=== PATIENT | female | born 1970 ===

== ENCOUNTER 2025-08-06 13:47 | Outpatient (AMB) | payer OTHER, SELFPAY ==
--- OUTSIDE RECORDS SUMMARY | 2025-07-31 23:59 | XMS_ITS | Continuity of Care Document ---
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 Date(s): 07/01/25 - 07/31/25 [facility] [address], [place] [address] Encounter Type: Triage Allergies, Adverse Reactions, Alerts No Known Allergies Immunizations Given and Recorded Vaccine Date Status Refusal Reason influenza virus vaccine, inactivated 07/21/23 Jalil rded influenza virus vaccine, inactivated 08/06/21 Jalil rded influenza virus vaccine, inactivated 07/21/20 Jalil rded influenza virus vaccine, inactivated 07/16/20 Jalil rded influenza virus vaccine, inactivated 09/25/19 Jalil rded influenza virus vaccine, inactivated 09/29/18 Jalil rded influenza virus vaccine, inactivated 07/06/18 Jalil rded influenza virus vaccine, inactivated 1 07/08/17 Re corded influenza virus vaccine, inactivated 06/30/16 Jalil rded influenza virus vaccine, inactivated 07/01/15 Give n influenza virus vaccine, inactivated 06/23/12 Jalil rded SARS-CoV-2 (COVID-19) mRNA-1273 vaccine 10/02/21 R ecorded SARS-CoV-2 (COVID-19) mRNA-1273 vaccine 10/01/20 R ecorded SARS-CoV-2 (COVID-19) mRNA BNT-162b2 vac 10/29/20 Recorded SARS-CoV-2 (COVID-19) mRNA BNT-162b2 vac 09/30/20 Recorded tetanus/diphtheria/pertussis, acel(Tdap) 09/29/18 Recorded tetanus/diphtheria/pertussis, acel(Tdap) 06/13/09 Recorded tetanus/diphtheria/pertussis, acel(Tdap) 08/11/07 Recorded influenza virus vaccine, live 10/01/14 Recorded tetanus-diphtheria toxoids (Td) 2 10/14/05 Given Measles/Mumps/Rubella Virus Vaccine 09/26/99 Recor ded 1Result Comment: [07/08/2017] done at work 2Admin Note: Adm by nurse Medications HydrOXYzine 0 Refills, Maintenance, 07/17/25 10:38:00 AM EDT, Partial fill upon patient request if the prescription is for a schedule II opioid drug. Start Date: 07/17/25 Status: Ordered Medication Dispense Status: Completed Total Allowed Fills: 1 Fills Dispensed: 0 meloxicam 10 mg oral capsule 1 capsule = 10 mg, By Mouth, Daily, 0 Refills, Maintenance, 07/17/25 10:38:00 AM EDT, Partial fill upon patient request if the prescription is for a schedule II opioid drug. Start Date: 07/17/25 Status: Ordered Medication Dispense Status: Completed Total Allowed Fills: 1 Fills Dispensed: 0 Rinvoq 15 mg oral tablet, extended release 1 tablet = 15 mg, By Mouth, Daily, do not chew or break tablets, # 30 tablet, 0 Refills, Maintenance, 01/05/25 12:09:00 PM EDT, ER Tablet, Partial fill upon patient request if the prescription is for a schedule II opioid drug. Start Date: 01/05/25 Status: Ordered Medication Dispense Status: Completed Quantity: 30.0 Unit: tablet Total Allowed Fills: 1 Fills Dispensed: 0 Problem List Condition Confirmation Course Effective Dates Status H ealth Status Informant SHAKIRA (generalized anxiety disorder) Confirmed Active History of urinary incontinence s/p sling procedure Confirmed Active History of diverticulitis Confirmed Active Mixed hyperlipidemia Confirmed Active Morning headache Confirmed Active Leg pain Confirmed Active Health care maintenance Confirmed Active Encounter for screening colonoscopy Confirmed Active Prediabetes Confirmed Active Psoriasis Confirmed Active Rosacea Confirmed Active Severe obesity (BMI 35.0-39.9) with comorbidity Confirmed Active De Anda's cyst Confirmed Active Tubular adenoma of colon 1 Confirmed 10/07/20 Active Venous insufficiency of lower extremity Confirmed Active 1repeat screening colonoscopy in 2027 Social History Social History Type Response Smoking Status Never smoker entered on: 11/16/13 Sexual Orientation Self described orien tation: ; Straight or heterosexual Sex Sex Representation Female (finding) Patient Care team information Care Team Personnel Name: Mehdi GREEN, Ro Sauer Position: [facility] Physician - Primary Care Member Role: PCP Address: [address] [place] [address] Telecom: Care Team Related Persons Name: MAT ZENG Name: DANIELLA SOLIS Name: JOY SOLIS Name: JEFF SCALES Insurance Providers Guarantor name: KEL SOLIS Health Plan Information #: 1 Payer: [facility] PPO Payer Identifier: JORDAN Member Number: [id number] Group Number: [id number] Subscriber Identifier: NA Relationship to Subscriber: self Coverage Type: Other Private Insurance Coverage Verification Date: NA Telecom: NA Address: NA
--- NOTE | 2025-08-06 13:50 | MHC.AMNUTRGE ---
VS Expanded 08/06/25 13:52 08/06/25 13:56 Height 5 ft 3 in 5 ft 3 in Weight 199 lb 1.239 oz 200 lb BMI 35.3 35.4 Intake Visit Reasons: Obesity Allergies latex Allergy (Verified 08/06/25 14:10) Swelling Nutrition Presentation Details: Patient presents for MNT for obesity Pt reports having gained about 17 lb since April of 2025. Patient physical activity has lessened due to knee pain for which she is evaluated by Dr. Patient reports lacking routine and is looking forward to starting meal planning Food frequency Fruits 0-1 per day Vegetables once a day Dairy 1 to twice a day Fish 0 2 once a week Beverages: Water, juices, coffee, tea HDT-Fdflxxp-Do.Jeor Equation Height: 5 ft 3 in Weight: 200 lb Resting Metabolic Rate: 1469.88 Calculated Activity Level: Sedentary Calories Needed to Maintain Weight: 1763.86 Diagnosis Nutrition problem #1: overweight/obesity As related to (etiology) #1: diagnosis and physical inactivity As evidenced by (sign/symptom) #1: high BMI and knowledge deficit of diet Assessment & Plan Assessment & Plan (1) Obesity (BMI 30-39.9): Code(s): E66.9 - Obesity, unspecified Category: Medical Plan: current wt: 91 kg ( August 20 ) est kcal needs as per MSJ: 1700 est protein needs as per 1 g/kg BW: 90 est fluid needs as per 30 ml/kg BW: 2700 Recommended fiber > 12 g /day and gradually increase up to 25-28 g /day or as tolerated Recommended sodium intake: Less than 2300 mg per day unless otherwise specified by DrJonelle Nutrition topics discussed : Reviewed (R), Pt verbalized understanding (V) , not applicable (N/A) R, : Healthy Plate Method Concept: R, : Carbohydrates: food sources of carbohydrates, relationship of carbohydrates to blood glucose, fatty liver GI health. Recommended total amount of carbohydrates per meals and snack. Differences between simple carbohydrates and complex carbohydrates R, : Lean protein foods including vegan , vegetarian sources of protein. Benefits of protein (including but not limited to healing, nutritional value , benefits in weight loss, glucose control R, V, N/A: Fats : Source of fats, benefits of fats. Difference between saturated and unsaturated fats. Saturated fats and its contribution to inflammation R, V, N/A: Fiber: food sources and role of fiber in the diet (including but not limited to its role as a prebiotic, benefits in constipation, role in IBS , role in glucose control and cholesterol level) R, V, N/A: Hydration: role of hydration and prevention of dehydration or over hydration. Foods and water content. R, V, N/A: Vitamins and Minerals in foods and supplements R, V, N/A: Interpreting food labels, including serving size, macronutrients, vitamins, minerals, allergens, ingredient list , % daily value Patient Instructions: Have meal replacement a day Make your evening meal less than 40-60 g of carbohydrate following healthy plate method Coding Level of Care Code Nutr Indiv Intake (94300) Diagnoses Obesity (BMI 30-39.9) E66.9 Time Spent (min) 30
[2025-08-06 13:52] VITALS: BMI 35.3
--- OUTSIDE RECORDS SUMMARY | 2025-08-06 15:24 | XMS_ITS | Data Portability ---
Author Organization [place] [facility] [place] Address [address] [place] [address] Assessment Encounter Date Assessment Date Assessment LastModified by Organization Details LastModified Time 04/08/2025 04/08/2025 Patient is a 54-year-old female with tricompartmental degenerative changes, greatest in the patellofemoral compartment. She had worsening of her symptoms with a corticosteroid injection performed a month ago. Ultrasound demonstrated a De Anda's cyst which were noted on today's visit also. We discussed additional treatment options. She will make an appointment with Dr. Barahona's team to discuss possible hyaluronic acid injection. Activity modification and realistic expectations were emphasized. _ Patient was seen and evaluated by Chucho Detusch PA-C in indirect conjunction with Dr. Barahona. The provider agrees with the history, physical examination, recommended tests/diagnostic imaging, and treatment plan. [email or web address] Not available 04/08/2025 14:46:17 04/17/2025 04/17/2025 54-year-old fema le with bilateral knee pain. History, examination and x-rays are consistent with a moderate to marked degree of osteoarthritis especially at the patellofemoral joint. She has failed to respond to cortisone injections. After discussion regarding treatment options she will be provided a prescription for meloxicam for as needed use for pain control. She also wishes to proceed with planning for viscosupplementation injections. Follow-up with me pending insurance authorization. This patient was seen and evaluated by Tayler Vega MS, PA-C in indirect conjunction with documenting/supervisin g provider Kimo Barahona MD. He agrees with history, physical examination, tests/diagnostic imaging, and treatment plan. This document was generated using voice recognition software. As a result, there may be unintended spelling, grammatical and/or textual errors. [email or web address] Not available 04/17/2025 08:57:05 07/04/2025 07/04/2025 HPI: Patient presents for Synvisc One viscosupplementation injection for the treatment of bilateral knee pain. All questions are answered to the patient's satisfaction. Exam: Knee(s) examined to show no sign of infection. Skin is intact. Score of 2 or more on Kellgren Joey scale. Tenderness to palpation of joint line. Distal checks are intact. Assessment/Plan: Knee pain secondary to osteoarthritis. See the attached procedure note. All questions were answered to the patient's satisfaction. Follow-up with me in 1 month. This patient was seen and evaluated by Tayler Vega MS, PA-C in indirect conjunction with documenting/supervisin g provider Kimo Barahona MD. He agrees with history, physical examination, tests/diagnostic imaging, and treatment plan. Not available 07/04/2025 09:04:21 08/01/2025 08/01/2025 54-year-old fema le with bilateral knee pain. History, examination and x-rays are consistent with advanced osteoarthritis with [id number] articulation. She has failed to respond to a wide range of conservative treatment options and is having progressive pain and disability. She wishes to proceed with planning for total joint arthroplasty. She wishes to have the right 1 done first and the left one soon after. At her request, she will be provided a refill for meloxicam. Follow-up with Dr. Barahona. This patient was seen and evaluated by Tayler Vega MS, PA-C in direct or indirect conjunction with documenting/supervisin g provider Kimo Barahona MD. He was present in the office or available for consultation. He has reviewed and agrees with the history, physical examination, tests/diagnostic imaging, and treatment plan. This document was generated using voice recognition software. As a result, there may be unintended spelling, grammatical and/or textual errors. Not available 08/01/2025 09:19:40 Plan of Treatment Reminders Order Date Submit Date Provider Last Modified By Organization Details Last Modified Time Details Appointments ESTABLISH ED/AONE REFERRAL 2024 09:15A M Kimo Barahona MD Not available Not available Not available Lab None recorded. Referral None recorded. Procedures intra-art icular injection , knee, viscosupp lement (PROC) - Please check insurance for Visco Authoriza tion, insurance preferred med. Choose One: 3 series or 1 series prefers 1 Knee Lateralit y: Bilate ral 2024 025 [email or web address] Not available 06/27/2025 11:16:23 Surgeries None recorded. Imaging XR, knee, 3 view 2024 025 [email or web address] 1 [facility], [address], [place], [address], 04/08/2025 16:46:05 XR, knee, 3 view 2024 025 [email or web address] 1 [facility], [address], [address], [place], [address], 04/08/2025 16:46:05 Medication Orders meloxicam 15 mg tablet 2024 025 [facility] #[id number], [address] [place] [address], [address], 08/01/2025 09:19:48 Synvisc-O ne 48 mg/6 mL intra-art icular syringe [address]/Pharmacy #[id number], [address] [place] [address], [address], 07/04/2025 09:04:40 Synvisc-O ne 48 mg/6 mL intra-art icular syringe [address]/Pharmacy #[id number], [address] [place] [address], [address], 07/04/2025 09:04:40 meloxicam 15 mg tablet 2024 025 [id number], [address] [facility], [place], [address], 04/17/2025 08:57:06 Patient TargetsNo targets recorded. Patient InstructionsNo instructions recorded. Reason for Referral None Reported. Problems Name Problem SNOMED Code Status Onset Date Resolution Date Notes Provider Name and Address Organization Details Recorded Time Primary gonarthrosi s, bilateral 674623760 Active 025 TAYLER VEGA PA-C [address], [place], [address], [place] [facility] 08:57:06 Problem Notes None recorded. Procedures Surgical History Date Name Laterality Status Provider Name and Address Organization Details Recorded Time 07/04/2025 Synvisc-On e Knee Inj w/US completed TAYLER VEGA PA-C [address] [facility] [address], [place], [address], [place] [facility] 07/04/2025 09:03:24 Imaging Results None recorded. Procedure Notes None recorded. Medical Equipment None Reported. Medications Name Sig Start Date Stop Date Status Note LastModified by Organization Details LastModified Time amoxicillin 500 mg capsule TAKE 1 CAPSULE BY MOUTH THREE TIMES A DAY active Not Available Not Available No t Available desonide 0.05 % topical cream APPLY TO EYELIDS TWICE DAILY DIRECTED FOR 5-7 DAYS THEN STOP active Not Available Not Available No t Available prednisone 10 mg tablet TAKE 1 TABLET BY MOUTH EVERY DAY active Not Available Not Available No t Available ibuprofen 800 mg tablet TAKE 1 TABLET BY MOUTH THREE TIMES A DAY active Not Available Not Available No t Available fluconazole 150 mg tablet TAKE 1 TABLET BY MOUTH ONCE AND REPEAT IN 3 DAYS IF SYMPTOMS PERSIST active Not Available Not Available No t Available meloxicam 15 mg tablet Take 1 tablet every day by oral route as needed. 2024 active Not Available Not Available Not Avai lable betamethaso ne, augmented 0.05 % topical cream PLEASE SEE ATTACHED FOR DETAILED DIRECTION S active Not Available Not Available No t Available metronidazo le 500 mg tablet TAKE 1 TABLET BY MOUTH 3 TIMES A DAY FOR 10 DAYS, NO ALCOHOL TAKE WITH FOOD FOR ABDOMINAL DISCOMFOR T 04/08 completed Not Available Not Available Not Available ciprofloxac in 500 mg tablet TAKE 1 TABLET BY MOUTH TWICE A DAY FOR 10 DAYS 04/08 completed Not Available Not Available Not Available sulfamethox azole 800 mg-trimetho prim 160 mg tablet TAKE 1 TABLET BY MOUTH TWICE A DAY FOR 5 DAYS 04/08 completed Not Available Not Available Not Available cephalexin 500 mg capsule TAKE 1 CAPSULE BY MOUTH THREE TIMES A DAY FOR 7 DAYS 04/08 completed Not Available Not Available Not Available tacrolimus 0.1 % topical ointment APPLY TO AFFECTED AREA TWICE A DAY INS ALLOWS 3O QT EVERY 23 DAYS active Not Available Not Available No t Available mupirocin 2 % topical ointment APPLY A THIN LAYER TWICE DAILY TO CLEAN OPEN WOUND(S) UNTIL IT HEALS 04/08 completed Not Available Not Available Not Available clobetasol 0.05 % topical ointment APPLY TO AFFECTED AREA TWICE A DAY FOR 10 DAYS active Not Available Not Available No t Available hydroxyzine HCl 10 mg tablet TAKE 1 TO 3 TABLETS BY MOUTH AT BEDTIME NEEDED FOR ITCHING active Not Available Not Available No t Available loratadine 10 mg tablet TAKE 1 TABLET BY MOUTH EVERY DAY NEEDED FOR ALLERGIES active Not Available Not Available No t Available Synvisc-One 48 mg/6 mL intra-artic ular syringe Take 6 mL by intraarti cular route. 2024 active Not Available Not Available Not Avai lable Gavilax 17 gram/dose oral powder DISSOLVE 17GM IN WATER/JUI CE, DRINK DAILY. MAY INCREASE 2-3 TIMES A DAY NEEDED FOR CONSTIPAT ION active Not Available Not Available No t Available Readi-Cat 2 2 % (w/v) oral suspension TAKE INSTRUCTE D BY RADIOLOGY active Not Available Not Available No t Available Vitals Date Recorded Body height Body mass index (BMI) Body weight Provider Name and Address Organization Details Last Updated DateTime 04/08/2025 160.02 cm 26.6 kg/m2 [address] [place] [facility] 04/08/2025 14:22:51 Date Recorded Body height Body mass index (BMI) Body weight Provider Name and Address Organization Details Last Updated DateTime 04/17/2025 160.02 cm 32.2 kg/m2 [address] [place] [facility] 04/17/2025 08:42:36 Date Recorded Body height Provider Name an d Address Organization Details Last Updated DateTime 07/04/2025 160[address] [place] [facility] [place], 07/04/2025 08:51:46 Social History None recorded. Functional Status Question Answer Note LastModified by Organizat ion Details LastModified Time Do you use any illicit or recreational drugs? No [email or web address] Information not available 04/08/2025 Do you or have you ever used any other forms of tobacco or nicotine? No [email or web address] Information not available 04/08/2025 What is your level of alcohol consumption? None [email or web address] Information not available 04/08/2025 Mental Status None recorded. Family History Relationship Description Onset Age of this Age Resolved Age Notes LastModified by Organization Details LastModified Time Mother Diabetes mellitus Not available 2024 14:23:14 Mother Heart disease [email or web address] Not available 2024 14:23:23 Mother Hypercholest erolemia [email or web address] Not available 2024 14:23:35 Mother History of hypertension [email or web address] Not available 14:23:42 Mother Rheumatoid arthritis Not available 2024 14:23:50 Father Diabetes mellitus Not available 2024 14:23:14 Father Heart disease [email or web address] Not available 2024 14:23:23 Brother Heart disease [email or web address] Not available 2024 14:23:23 Medical History Condition Response Coronary Artery Disease N Gout N Hyperthyroidism N MRSA N Blood Transfusion N Emphysema N Depression N COPD N Hypothyroidism N Pacemaker N Vascular Disease N Gastrointestinal Disease N Anxiety Disorder N Autoimmune disease N Arthritis N Cancer N Stroke N High Cholesterol N Neurologic Disorder N Liver Disease N Organ Transplant N Rheumatoid Arthritis N Arrhythmia N Fibromyalgia N Kidney Disease N Allergies/Hayfever N Adverse Reaction to Anesthesia N Thyroid Problems N Anemia N Brain Injury N Heart Attack (GA) N Osteopenia N Diabetes N Bleeding Disorder N Seizures/Epilepsy N AIDS/HIV N Congestive Heart Failure (CHF) N Asthma N Amputation N Reflux/GERD N Sleep Apnea N Hepatitis N Aneurysm N Heart Disease N Pulmonary Embolism N Hypertension N Osteoporosis N Gynecological HistoryNo gynecological history recorded. Obstetrics History GPAL:G 0 P 0 0 0 0 Past Encounters Encounter ID Performer Location Encounter Start Date Encounter Closed Date Diagnosis/Indication Diagnosis SNOMED-CT Code Diagnosis ICD10 Code Diagnosis IMO Codes Diagnosis Note [id number] RIN JOY [address] [facility] [address] [place] [address] 04/08/2025 13:39:18 04/08/2025 14:47:51 Pain of right knee region 9821125867 83989 M25.561 78182689 Pain of le ft knee region 9527595666 29911 M25.562 11013111 Primary go narthrosis, bilateral 352263811 M17.0 [id number] RIN MURRY [address] [address] 04/17/2025 08:10:44 04/17/2025 09:00:28 Primary gonarthrosis, bilateral 637180041 M17.0 [id number] RIN MURRY [facility] [address] [address] 07/04/2025 08:43:51 07/04/2025 09:04:55 Primary gonarthrosis, bilateral 451489666 M17.0 [id number] Osteoarthr itis of knee 166549840 M17.9 [id number] RIN MURRY [facility] [address] [facility] [address] [place] [address] 08/01/2025 09:01:31 08/01/2025 09:16:47 Primary gonarthrosis, bilateral 467321699 M17.0 [id number] Health Concerns Section Related Observation LastModified by Organization Detai ls LastModified Time None Recorded Concern Status LastModified by Organization Details LastModified Time None Recorded Advance Directives Directive None Recorded Payers Insurance Date Sequence Insurance Name Policy Number Policy Mendoza Covered Member ID Mendoza Member ID Guarantor Name 04/11/2025 1 [facility] - [employer]ED [employer]EF[employer] AD[employer]AT[employer] (PPO) [id number] Madeline Bell [id number] Madeline Bell 04/11/[address] [facility] [id number] Madeline Bell [id number] Madeline Bell 06/13/2025 1 [facility] [id number] Madeline Bell [id number] Madeline Bell Notes Date Note Type Note Provider Name and Address Organization Details Recorded Time 5 text/html ROS as noted in the HPI Patient is a 54-year-old female who presents today with bilateral knee pain. Symptoms were worse in December 2024. She was sent for an ultrasound to rule out a DVT. She was noted to have De Anda's cyst. She was subsequently followed by [facility] on 03/05/2025 and underwent bilateral intra-articular knee injections. She was told she had severe arthritis. Unfortunately, symptoms worsened after the injections. She was not happy with her visit with them and presents today for another opinion. No fever or chills. No numbness or tingling. No trauma. CHUCHO DEUTSCH PA-C [address], [place], [address], [place] [facility] 04/08/2025 14:48:19 5 text/html 54-year-old female presents with bilateral knee pain. She complains of pain on the right side greater than the left. She reports that in late January or early February she brought leg pain to the attention of her primary care doctor. She was sent for an ultrasound. That was negative for DVT but showed the presence of a De Anda's cyst. She was subsequently referred to orthopedics. Examination and x-ray showed evidence for osteoarthritis. She reports that in the first week in February she underwent cortisone injections to bilateral knees. She describes those procedures as being very painful. That has left her with persistent bilateral knee pain. She was not having knee pain prior to the injections. She denies a history of surgery to either knee. She has not used any medications for this. She localizes her pain to the anterior aspect of the joint. TAYLER VEGA PA-C [address], [place], [address], [place] [facility] 04/17/2025 08:57:28 5 text/html 54-year-old female presents to discuss the results of viscosupplementation injection to bilateral knees. She reports that 2 weeks after the injection she began to notice some reduction of the severity of her pain. Since then, the effects have waned and she is back to very nearly her baseline of pain and dysfunction. The right 1 bothers her more than the left. TAYLER VEGA PA-C [address] [place] [address], [place], [address], [place] [facility] 08/01/2025 09:20:22 OBGyn Episode No OBEpisode recorded.
--- OUTSIDE RECORDS SUMMARY | 2025-08-06 15:24 | XMS_ITS | Continuity of Care Document ---
Author Organization [facility] Address [address] [facility] [address] [place] [id number] Insurance Providers Payer Plan Claims Address Claims Phone Policy Number Group Number Relation Employer Guarantor Name Guarantor Guarantor Address Guarantor Phone [facility], [address], [place] [address] tel:[phone] [id number] [id number] Self Madeline Bell [address] [place] [address], , [place] Sim[place] [address] [facility] PPO [id number] Self Madeline Bell 1970 [address] [facility], , PERR[place] Simms [address] Problems Unknown Problems Results Test Result Date/Time Value / Unit Interp. Refere [facility] Range Lipid Panel[[id number]] Collected: 03/09/2025 02:04 PM Specimen Received: 03/09/2025 05:00 AM Source: [facility] Cholesterol, Total [[id number]] 03/10/2025 01:08 PM 212 mg/dL H 100-199 mg/d L Triglycerides [[id number]] 03/10/2025 01:08 PM 41 mg/dL 0-149 mg/dL HDL Cholesterol [471933] 03/10/2025 01:08 PM 68 mg/dL >39 mg/dL VLDL Cholesterol Joel [[id number]] 03/10/2025 01:08 PM 7 mg/dL 5-40 mg/dL LDL Chol Calc (NIH) [[id number]] 03/10/2025 01:08 PM 137 mg/dL H 0-99 mg/dL Hemoglobin A1c[[id number]] Collected: 03/09/2025 02:04 PM Specimen Received: 03/09/2025 05:00 AM Source: [facility] Hemoglobin A1c [[id number]] 03/10/2025 01:07 PM 5.8 % H 4.8-5.6 % . Prediabetes: 5.7 - 6.4 Cecelia betes: >6.4 Glycemic control for adults with diabetes: 7.0 Comp. Metabolic Panel (14)[3 [id number]] Collected: 10/03/2024 03:09 PM Specimen Received: 10/03/2024 05:00 AM Source: [facility] Glucose [[id number]] 10/04/2024 04:56 AM 104 mg/dL H 70-99 mg/dL BUN [[id number]] 10/04/2024 04:56 AM 12 mg/dL 6-2 4 mg/dL Creatinine [515898] 10/04/2024 05:01 AM 0.80 mg/dL 0.57-1.00 mg/dL eGFR [545660] 10/04/2024 05:01 AM 86 mL/min/1.73 >59 mL/min/1.73 BUN/Creatinine Ratio [181813] 10/04/2024 05:01 AM 15 9-23 Sodium [750711] 10/04/2024 04:46 AM 142 mmol/L 134-144 mmol/L Potassium [236725] 10/04/2024 04:47 AM 4.5 mmol/L 3.5-5.2 mmol/L Chloride [503854] 10/04/2024 04:46 AM 104 mmol/L 96-106 mmol/L Carbon Dioxide, Total [793327] 10/04/2024 04:55 AM 24 mmol/L 20-29 mmol/L Calcium [495292] 10/04/2024 04:54 AM 9.2 mg/dL 8.7-10.2 mg/dL Protein, Total [740797] 10/04/2024 05:02 AM 6.8 g/dL 6.0-8.5 g/dL Albumin [[id number]] 10/04/2024 04:56 AM 4.1 g/dL 3.8-4.9 g/dL Globulin, Total [[id number]] 10/04/2024 05:02 AM 2.7 g/dL 1.5-4.5 g/dL Bilirubin, Total [254981] 10/04/2024 05:01 AM 0.5 mg/dL 0.0-1.2 mg/dL Alkaline Phosphatase [292249] 10/04/2024 05:01 AM 111 IU/L 44-121 IU/L AST (SGOT) [489176] 10/04/2024 05:00 AM 22 IU/L 0-40 IU/L ALT (SGPT) [145545] 10/04/2024 05:01 AM 31 IU/L 0-32 IU/L Lipid Panel[[id number]] Collected: 10/03/2024 03:09 PM Specimen Received: 10/03/2024 05:00 AM Source: [facility] Cholesterol, Total [741953] 10/04/2024 05:07 AM 209 mg/dL H 100-199 mg/d L Triglycerides [040121] 10/04/2024 05:07 AM 184 mg/dL H 0-149 mg/dL HDL Cholesterol [833018] 10/04/2024 05:13 AM 54 mg/dL >39 mg/dL VLDL Cholesterol Joel [550511] 10/04/2024 05:13 AM 32 mg/dL 5-40 mg/dL LDL Chol Calc ([facility]) [059244] 10/04/2024 05:13 AM 123 mg/dL H 0-99 mg/dL Hemoglobin A1c[102225] Collected: 10/03/2024 03:09 PM Specimen Received: 10/03/2024 05:00 AM Source: [facility] Hemoglobin A1c [[id number]] 10/04/2024 03:59 AM 6.1 % H 4.8-5.6 % . Prediabetes: 5.7 - 6.4 Cecelia betes: >6.4 Glycemic control for adults with diabetes: 7.0 Allergies, adverse reactions, alerts No known allergies and adverse reactions Medications No administered medications reported Vital Signs No vital signs reported Social History No smoking Hx information available
--- OUTSIDE RECORDS SUMMARY | 2025-08-06 15:24 | XMS_ITS | Patient Health Record ---
Author Organization [facility] Address [address] [place] [address] Care Team Providers Care Certified Master Safecracker Name Role Phone MADAY PALOMO Unavailable [phone] Allergies No Known Allergies Reason For Referral No Information Medications Medication SIG (Take, Route, Frequency, Duration) Notes Start Date End Date Status Ozempic (0.25 or 0.5 MG/DOSE) 2 MG/3ML Solution Pen-injector 0.25mg x 2 weeks, then 0.5mg weekly Subcutaneous weekly; Duration: 30 days Active Social History Tobacco Use: Social History Observation Description Date Details (start date - stop date) Never Smoker NA - NA Social History Drugs/Alcohol: Social Info Question Answer Notes Drugs Have you used drugs other than those for medical reasons in the past 12 months? No Tobacco Use: Social Info Question Answer Notes Tobacco Use/Smoking Are you a nonsmoker Additional Details Category Social Info Options Details Drugs/Alcohol: Do you smoke marijuana? De nies Do you drink alcohol? No Problems Problem Type SNOMED Code ICD Code Onset Dates Problem Status W/U Status Risk Notes Problem Obesity due to excess calories (214218441) Other obesity due to excess calories (E66.09) Active confirmed Problem Body mass index 30.00 to 34.99 (70709943708541 7) Body mass index [BMI] 32.0-32.9, adult (Z68.32) Active confirmed Problem Body mass index 30.00 to 34.99 (57929455533003 7) Body mass index [BMI] 34.0-34.9, adult (Z68.34) Active confirmed Problem Reactive depression (65590444) Reactive depression (F32.9) Active confirmed Plan Of Treatment No Information Insurance Providers Payer Name Payer Address Payer Phone Subscriber Number Group Number Insured Name Patient Relationship to Insured Coverage Start Date Coverage End Date [facility] [address] [facility] [place] [address] [id number] Madeline Bell Self - patient is the insured Medications Administered Medication Instructions Date of Administration Dosage Notes MICC B12 INJECTION 10/07/2021 lot # [id number] MICC B12 INJECTION 12/15/2021 lot # [id number] MICC B12 INJECTION 01/05/2022 lot # [id number] MICC B12 INJECTION 01/13/2022 1 MICC B12 INJECTION 04/02/2022 1 Semaglutide 11/29/2023 0.25 mg LLQ Semaglutide 12/06/2023 0.5 mg Semaglutide 12/13/2023 0.50 mg RLQ Semaglutide 12/20/2023 0.5 mg Semaglutide 12/27/2023 0.5 mg Medical (General) History Surgical History Surgery Date(Month/Year) 1989
--- OUTSIDE RECORDS SUMMARY | 2025-08-06 15:24 | XMS_ITS | Continuity of Care Document ---
Author Organization [facility] [place] Address [address] [facility] [address] [place] [address] Care Team Providers Care Transit Department Clerk Name Role Phone DELROY KOCH Primary Care Provider DELROY KOCH Referring Provider [phone] Assessment Encounter Date Assessment Date Assessment LastModified by Organization Details LastModified Time 08/01/2025 08/01/2025 54-year-old female with bilateral knee pain. History, examination and x-rays are consistent with advanced osteoarthritis with [id number] articulation. She has failed to respond to [...] PA-C in direct or indirect conjunction with documenting/super vising provider Kimo Barahona MD. He was present in the office or available for consultation. He has reviewed and agrees with the history, physical examination, tests/diagnostic imaging, and treatment plan. This document was generated using voice recognition software. As a result, there may be unintended spelling, grammatical and/or textual errors. [email or web address] Not available 08/01/2025 09:19:40 Plan of Treatment Reminders Order Date Submit Date Provider Last Modified By Organization Details Last Modified Time Details Appointments ESTABLISH ED/AONE REFERRAL 2024 09:15A M Kimo Barahona MD Not available Not available Not available Lab None recorded. Referral None recorded. Procedures None recorded. Surgeries None recorded. Imaging None recorded. Medication Orders meloxicam 15 mg tablet 2024 025 [id number], [address] [facility], [place], [address], 08/01/2025 09:19:48 Patient TargetsNo targets recorded. Patient InstructionsNo instructions recorded. Reason for Referral None Reported. Problems Name Problem SNOMED Code Status Onset Date Resolution Date Notes Provider Name and Address Organization Details Recorded Time Primary gonarthrosi s, bilateral Active 025 TAYLER VEGA PA-C [address], [place], [address], [facility] [place] 08:57:06 Problem Notes None recorded. Procedures Surgical History Date Name Laterality Status Provider Name and Address Organization Details Recorded Time 07/04/2025 Synvisc-On e Knee Inj w/US completed TAYLER VEGA PA-C [address] [facility] [address], [address], [place] [facility] [place] 07/04/2025 09:03:24 Imaging Results None recorded. [...] Available Not Available No t Available Vitals None Recorded Social History None recorded. Functional Status Question Answer Note LastModified by Organizat ion Details LastModified Time Do you use any illicit or recreational drugs? No [email or web address] Information not available 04/08/2025 Do you or have you ever used any other forms of tobacco or nicotine? No [email or web address] Information not available 04/08/2025 What is your level of alcohol consumption? None [email or web address] Information not available 04/08/2025 Mental Status None recorded. Family History Relationship Description Onset Age of this Age Resolved Age Notes LastModified by Organization Details LastModified Time Mother Diabetes mellitus [email or web address] Not available 2024 14:23:14 Mother Heart disease [email or web address] Not available 2024 14:23:23 Mother Hypercholest erolemia [email or web address] Not available 2024 14:23:35 Mother History of hypertension [email or web address] Not available 14:23:42 Mother Rheumatoid arthritis [email or web address] Not available 2024 14:23:50 Father Diabetes mellitus [email or web address] Not available 2024 14:23:14 Father Heart disease [email or web address] Not available 2024 14:23:23 Brother Heart disease [email or web address] Not available 2024 14:23:23 Medical History Condition [...] Anemia N Brain Injury N Heart Attack (IA) N Osteopenia N Diabetes N Bleeding Disorder [...] ICD10 Code Diagnosis IMO Codes Diagnosis Note [id number] RIN MURRY [address] [facility] [address] [place] [address] 07/04/2025 08:43:51 07/04/2025 09:04:55 Primary gonarthrosis, bilateral 050472412 M17.0 [id number] 0061252 Osteoarthr itis of knee 548090601 M17.9 [id number] RIN MURRYestefania jones [address] [facility] [address] [place] [address] 08/01/2025 09:01:31 08/01/2025 09:16:47 Primary gonarthrosis, bilateral 622318718 M17.0 [id number] Health Concerns Section Related Observation LastModified by Organization Detai ls LastModified Time None Recorded Concern Status LastModified by Organization Details LastModified Time None Recorded Payers Encounter Date Sequence Insurance Name Policy Number Policy Mendoza Covered Member ID Mendoza Member ID Guarantor Name 08/01/2025 1 [id number] Madeline Bell [id number] Madeline Bell 08/01/2025 2 [facility] [id number] Madeline Bell [id number] Madeline Bell Notes Date Note Type Note Provider Name and Address Organization Details Recorded Time 5 text/html 54-year-old female presents to discuss [...] more than the left. TAYLER VEGA PA-C [address] [facility] [address], [place], [address], [place] [facility] [place] 08/01/2025 09:20:22 OBGyn Episode No OBEpisode recorded.
[2025-08-12 10:45] VITALS: BMI 35.4
== END 2025-08-06 14:45 | disposition home or self-care (01) ==
LOC: HO.ENCR 13:48
PROVIDERS: Visit Provider Dietitian, Registered
DX: E66.9 Obesity, unspecified (principal)

== ENCOUNTER → 2025-08-06 13:47 | Outpatient (BNVA) | payer OTHER, SELFPAY | PROVIDERS: Visit Provider Dietitian, Registered | DX: E66.9 Obesity, unspecified (principal); Z71.3 Dietary counseling and surveillance | CPT/HCPCS: 97802 ==